=== PATIENT | female | born 1945 | race Two or more races ===

== ENCOUNTER 2020-09-01 13:46 | Inpatient (IN) | payer OTHER ==
[~2020-09-01] VITALS: Ht 167.6 cm; Wt 70.3 kg
[2020-09-12] MEDS ORDERED: DOXYCYCLINE MO100 M1 (13:20)
[2020-09-12] MEDS ORDERED: ROSUVASTATIN CA10 MG (13:20)
[2020-09-18] MEDS ORDERED: LOPRESSOR25 MG PO (09:41)
== END 2020-09-18 13:20 | disposition home or self-care (01) | DRG 338 ==
LOC: ER 13:46 → ICU-2 09-02 14:58 → MEDJ 09-02 14:58 → SEC-K 09-04 14:09 → MEDJ 09-04 14:38
PROVIDERS: Surgery; ADMIT Internal Medicine; ATTEND Internal Medicine
PROC: 3E0F7SF Introduction of Other Gas into Respiratory Tract, Via Natural or Artificial Opening (ICD-10-PCS; 2020-09-01)
PROC: BW40ZZZ Ultrasonography of Abdomen (ICD-10-PCS; 2020-09-02)
PROC: BW2110Z Computerized Tomography (CT Scan) of Abdomen and Pelvis using Low Osmolar Contrast, Unenhanced and Enhanced (ICD-10-PCS; 2020-09-03)
PROC: 4A12X4Z Monitoring of Cardiac Electrical Activity, External Approach (ICD-10-PCS; 2020-09-04)
PROC: B24BZZZ Ultrasonography of Heart with Aorta (ICD-10-PCS; 2020-09-06)
PROC: BW2110Z Computerized Tomography (CT Scan) of Abdomen and Pelvis using Low Osmolar Contrast, Unenhanced and Enhanced (ICD-10-PCS; 2020-09-10)
PROC: 0W9F0ZZ Drainage of Abdominal Wall, Open Approach (ICD-10-PCS; 2020-09-13)
PROC: 0DTJ0ZZ Resection of Appendix, Open Approach (ICD-10-PCS; principal; 2020-09-13 10:00)
DX: K35.32 Acute appendicitis with perforation, localized peritonitis, and gangrene, without abscess (principal); A41.89 Other specified sepsis; N17.8 Other acute kidney failure; I48.20 Chronic atrial fibrillation, unspecified; J90 Pleural effusion, not elsewhere classified; E87.1 Hypo-osmolality and hyponatremia; K81.9 Cholecystitis, unspecified; E78.5 Hyperlipidemia, unspecified; K59.09 Other constipation; E87.6 Hypokalemia; I95.89 Other hypotension; D72.828 Other elevated white blood cell count; E83.39 Other disorders of phosphorus metabolism; B95.2 Enterococcus as the cause of diseases classified elsewhere; R10.30 Lower abdominal pain, unspecified; R11.2 Nausea with vomiting, unspecified; Z20.822 Contact with and (suspected) exposure to COVID-19; Z88.0 Allergy status to penicillin

== ENCOUNTER 2020-09-21 06:04 | Emergency (ER) | payer OTHER ==
[~2020-09-21] VITALS: Ht 152.4 cm; Wt 63.5 kg
[~2020-09-21 06:04] MED LIST: DOXYCYCLINE MO100 M1; LOPRESSOR25 MG PO; ROSUVASTATIN CA10 MG
== END 2020-09-21 11:56 | disposition home or self-care (01) ==
LOC: ER 06:04
DX: L02.211 Cutaneous abscess of abdominal wall (principal); T81.49XA Infection following a procedure, other surgical site, initial encounter; B95.2 Enterococcus as the cause of diseases classified elsewhere; Y83.8 Other surgical procedures as the cause of abnormal reaction of the patient, or of later complication, without mention of misadventure at the time of the procedure